=== PATIENT | male | born 1990 ===

== ENCOUNTER 2021-11-25 13:36 | Emergency (ER) | payer OTHER | END 2021-11-25 14:45 | LOC: MW.ED 13:36 | DX: M54.2 Cervicalgia (principal); R51.9 Headache, unspecified; F17.200 Nicotine dependence, unspecified, uncomplicated; V43.93XA Unspecified car occupant injured in collision with pick-up truck in traffic accident, initial encounter; Y92.410 Unspecified street and highway as the place of occurrence of the external cause | CPT/HCPCS: 70450; 70450-26; 71046; 71046-26; 72125; 72125-26; 99283; 99284 ==